=== PATIENT | female | born 1960 | race Caucasian/White ===

== ENCOUNTER → 2016-04-18 | Outpatient (REF) | payer OTHER ==
[~2016-04-18] MED LIST: /AUGM875TA PO; /LOR25TA PO; /TIOT18INH INH; ALBU17IN2 IN; AMBI10TA PO; CHLORTHALIDONE PO; CONC18TA PO; DILA100C PO; GLUC500T PO; OMEP20TA7 PO; OXYC10TA97 PO; PREG100CA PO; REQUIP PO; SIMV20TA2 PO; TOPI100T PO; TOPI50TA PO; XANA0.25 PO; [UNRECOGNIZED DRUG - REMARK]
[2016-04-19 12:54] LABS: BASO # 0.1 K/mm3 (0.0-0.2); EOS # 0.3 K/mm3 (0.0-0.50); EOS % 3.2 % (0.0-3.0); LARGE UNSTAINED CELL # 0.4 K/mm3 (0.0-0.4); LARGE UNSTAINED CELL % 4.4 % (0.0-4.0); LYMPH % 21.3 % (24.0-44.0); MEAN CORPUSCULAR HEMOGLOBIN 29.8 pg (27.0-33.0); MEAN CORPUSCULAR HGB CONC 33.2 g/dl (32.0-36.5); MEAN CORPUSCULAR VOLUME 89.7 fl (80.0-96.0); MONO # 0.4 K/mm3 (0.0-0.8); NEUTROPHILS # 6.1 K/mm3 (1.8-7.7); NEUTROPHILS % 66.1 % (36.0-66.0); PLATELET COUNT, AUTOMATED 333 k/mm3 (150-450); RED CELL DISTRIBUTION WIDTH 13.2 % (11.5-14.5); WHITE BLOOD COUNT 9.2 K/mm3 (4.0-10.0)
[2016-04-19 13:12] LABS: ALBUMIN 3.6 GM/DL (3.2-5.2); ALBUMIN/GLOBULIN RATIO 0.92 (1.00-1.93); ALKALINE PHOSPHATASE 128 U/L (45-117); ALT/SGPT 15 U/L (12-78); ANION GAP 9 MEQ/L (8-16); AST/SGOT 8 U/L (15-37); BILIRUBIN,TOTAL 0.3 MG/DL (0.2-1.0); BLOOD UREA NITROGEN 11 MG/DL (7-18); CALCIUM LEVEL 8.9 MG/DL (8.5-10.1); CARBON DIOXIDE LEVEL 23 MEQ/L (21-32); CHLORIDE LEVEL 107 MEQ/L (98-107); CHOLESTEROL LEVEL 261 MG/DL (<200); CREATININE FOR GFR 0.77 MG/DL (0.55-1.02); GLOMERULAR FILTRATION RATE > 60.0 (>51); GLUCOSE, FASTING 161 MG/DL (70-105); POTASSIUM SERUM 3.8 MEQ/L (3.5-5.1); SODIUM LEVEL 139 MEQ/L (136-145); TOTAL PROTEIN 7.5 GM/DL (6.4-8.2); TRIGLYCERIDES LEVEL 284 MG/DL (<150)
== END ==
LOC: M SFHCCLAY 14:35
PROVIDERS: ATTEND Nurse Practitioner
DX: K64.8 Other hemorrhoids (principal); E11.9 Type 2 diabetes mellitus without complications

== ENCOUNTER → 2016-08-26 | Outpatient (REF) | payer OTHER ==
[2016-08-26 19:23] LABS: ALBUMIN 3.4 GM/DL (3.2-5.2); ALBUMIN/GLOBULIN RATIO 0.83 (1.00-1.93); ALKALINE PHOSPHATASE 113 U/L (45-117); ALT/SGPT 18 U/L (12-78); ANION GAP 10 MEQ/L (8-16); AST/SGOT 6 U/L (15-37); BILIRUBIN,TOTAL 0.2 MG/DL (0.2-1.0); BLOOD UREA NITROGEN 22 MG/DL (7-18); CALCIUM LEVEL 8.9 MG/DL (8.5-10.1); CARBON DIOXIDE LEVEL 23 MEQ/L (21-32); CHLORIDE LEVEL 106 MEQ/L (98-107); CHOLESTEROL LEVEL 236 MG/DL (<200); GLOMERULAR FILTRATION RATE > 60.0 (>51); GLUCOSE, FASTING 264 MG/DL (70-105); POTASSIUM SERUM 4.3 MEQ/L (3.5-5.1); SODIUM LEVEL 139 MEQ/L (136-145); TOTAL PROTEIN 7.5 GM/DL (6.4-8.2); TRIGLYCERIDES LEVEL 226 MG/DL (<150)
== END ==
LOC: M SFHCCLAY 10:19
PROVIDERS: ATTEND Nurse Practitioner
DX: E11.9 Type 2 diabetes mellitus without complications (principal)

== ENCOUNTER → 2016-12-03 | Outpatient (REF) | payer OTHER ==
[2016-12-03 13:13] LABS: ALBUMIN 3.4 GM/DL (3.2-5.2); ALBUMIN/GLOBULIN RATIO 0.92 (1.00-1.93); ALKALINE PHOSPHATASE 106 U/L (45-117); ALT/SGPT 16 U/L (12-78); ANION GAP 10 MEQ/L (8-16); AST/SGOT 3 U/L (15-37); BILIRUBIN,TOTAL 0.4 MG/DL (0.2-1.0); BLOOD UREA NITROGEN 18 MG/DL (7-18); CALCIUM LEVEL 9.3 MG/DL (8.5-10.1); CARBON DIOXIDE LEVEL 25 MEQ/L (21-32); CHLORIDE LEVEL 103 MEQ/L (98-107); CREATININE FOR GFR 0.86 MG/DL (0.55-1.02); GLOMERULAR FILTRATION RATE > 60.0 (>51); GLUCOSE, FASTING 246 MG/DL (70-105); POTASSIUM SERUM 4.4 MEQ/L (3.5-5.1); SODIUM LEVEL 138 MEQ/L (136-145); TOTAL PROTEIN 7.1 GM/DL (6.4-8.2)
== END ==
LOC: M SFHCCLAY 08:57
PROVIDERS: ATTEND Nurse Practitioner
DX: E11.9 Type 2 diabetes mellitus without complications (principal)

== ENCOUNTER → 2016-12-20 | Outpatient (REF) | payer OTHER | LOC: M SFHCCLAY 16:32 | PROVIDERS: ATTEND Family Medicine | DX: K52.9 Noninfective gastroenteritis and colitis, unspecified (principal) ==

== ENCOUNTER → 2017-01-14 | Outpatient (CLI) | payer BC, OTHER, MEDICAID ==
--- NOTE | 2017-01-14 22:33 | REP ---
Whole body PET CT scan for restaging of breast carcinoma: There are no prior PET CT scans. Comparison study is the CT of the chest dated 04/10/2015. Whole body PET CT scan is performed from skull base to the upper thighs. Neck and supraclavicular areas: There are no hypermetabolic foci. There is artifactual uptake in the the tonsillar tissues. Chest: There are no hypermetabolic foci. There is non hypermetabolic uptake in the left breast nipple. There is a right mastectomy. There is non hypermetabolic uptake in the anterior right chest wall. Abdomen, pelvis and upper thighs: There are no hypermetabolic foci. There is a small right adrenal nodule at the confluence of the medial and lateral right adrenal leaves that demonstrate non hypermetabolic uptake with the standard uptake value i measuring 1.7. Impression: There are no hypermetabolic foci. The patients known small right adrenal nodule demonstrates non hypermetabolic uptake. The studies performed with 10 mCi of F 18 FDG. Signed by Brandan Parada MD 01/14/2017 10:25 P
== END ==
LOC: M PLARAD 11:43
PROVIDERS: ATTEND Internal Medicine Medical Oncology
DX: C50.919 Malignant neoplasm of unspecified site of unspecified female breast (principal)
CPT/HCPCS: 78815; A9552

== ENCOUNTER 2017-03-14 12:20 | Day surgery (SDC) | payer BC, OTHER, MEDICAID ==
[2017-03-14] MEDS: NS 1,000 ML IV (12:45)
[2017-03-14] MEDS ORDERED: PROPOFOL 500 MG/50 ML VIAL As Ordered (13:40)
[2017-03-14] MEDS ORDERED: LIDOCAINE 2% INJ 100 MG/5 ML SDV (FOR ANES.) As Ordered (13:40)
== END 2017-03-14 15:25 | disposition home or self-care (01) ==
LOC: M OPP 12:20
DX: K92.1 Melena (principal); D12.0 Benign neoplasm of cecum; D12.4 Benign neoplasm of descending colon; D12.7 Benign neoplasm of rectosigmoid junction; K57.30 Diverticulosis of large intestine without perforation or abscess without bleeding; K64.8 Other hemorrhoids; R13.10 Dysphagia, unspecified; K29.70 Gastritis, unspecified, without bleeding; I10 Essential (primary) hypertension; E11.9 Type 2 diabetes mellitus without complications; R12 Heartburn; K21.9 Gastro-esophageal reflux disease without esophagitis; R06.02 Shortness of breath; M19.90 Unspecified osteoarthritis, unspecified site; M54.9 Dorsalgia, unspecified; F41.9 Anxiety disorder, unspecified; F32.9 Major depressive disorder, single episode, unspecified; F90.9 Attention-deficit hyperactivity disorder, unspecified type; J44.9 Chronic obstructive pulmonary disease, unspecified; G47.8 Other sleep disorders; Z85.3 Personal history of malignant neoplasm of breast; Z92.21 Personal history of antineoplastic chemotherapy; Z92.3 Personal history of irradiation; F17.210 Nicotine dependence, cigarettes, uncomplicated; Z90.11 Acquired absence of right breast and nipple; Z88.8 Allergy status to other drugs, medicaments and biological substances; Z79.899 Other long term (current) drug therapy
CPT/HCPCS: 45380

== ENCOUNTER → 2017-05-01 | Outpatient (REF) | payer OTHER, MEDICAID ==
[2017-05-01 17:26] LABS: ALBUMIN 3.6 GM/DL (3.2-5.2); ALBUMIN/GLOBULIN RATIO 0.88 (1.00-1.93); ALKALINE PHOSPHATASE 117 U/L (45-117); ALT/SGPT 19 U/L (12-78); ANION GAP 9 MEQ/L (8-16); AST/SGOT 7 U/L (7-37); BILIRUBIN,TOTAL 0.2 MG/DL (0.2-1.0); BLOOD UREA NITROGEN 17 MG/DL (7-18); CALCIUM LEVEL 9.3 MG/DL (8.5-10.1); CARBON DIOXIDE LEVEL 25 MEQ/L (21-32); CHLORIDE LEVEL 106 MEQ/L (98-107); CHOLESTEROL LEVEL 293 MG/DL (<200); CHOLESTEROL RISK RATIO 5.327 (<5); CREATININE FOR GFR 0.81 MG/DL (0.55-1.30); GLOMERULAR FILTRATION RATE > 60.0 (>51); GLUCOSE, FASTING 247 MG/DL (70-100); HDL CHOLESTEROL 55 MG/DL (>40); LDL CHOLESTEROL 192.6 MG/DL (<100); NON-HDL-C 238 MG/DL; POTASSIUM SERUM 4.2 MEQ/L (3.5-5.1); SODIUM LEVEL 140 MEQ/L (136-145); TOTAL PROTEIN 7.7 GM/DL (6.4-8.2); TRIGLYCERIDES LEVEL 227 MG/DL (<150)
[2017-05-01 17:35] LABS: CREATININE, URINE 80.9 MG/DL; MALB URINE SIEMENS 83.8 MG/L; MAU/CREAT RATIO 103.5 MCG/MG (0.0-30.0)
[2017-05-01 18:36] LABS: ESTIMATED AVERAGE GLUCOSE 249 MG/DL (60-110); HEMOGLOBIN A1c 10.3 %
== END ==
LOC: M SFHCCLAY 09:42
DX: E11.9 Type 2 diabetes mellitus without complications (principal)
CPT/HCPCS: 80053

== ENCOUNTER → 2017-05-05 | Outpatient (CLI) | payer BC, OTHER, MEDICAID | LOC: M RAD 10:19 | DX: N64.52 Nipple discharge (principal) | CPT/HCPCS: 77065 ==

== ENCOUNTER → 2017-05-29 | Outpatient (CLI) | payer BC, OTHER, MEDICAID ==
[~2017-05-29] MED LIST changes: -/AUGM875TA PO; -/LOR25TA PO; -/TIOT18INH INH; -ALBU17IN2 IN; -AMBI10TA PO; -CHLORTHALIDONE PO; -CONC18TA PO; -DILA100C PO; -GLUC500T PO; -OMEP20TA7 PO; -OXYC10TA97 PO; -PREG100CA PO; +PROHANCE 279.3MG/ML 15ML VIAL (A9576) As Ordered; +PROHANCE 279.3MG/ML 5ML VIAL (A9576) As Ordered; -REQUIP PO; -SIMV20TA2 PO; -TOPI100T PO; -TOPI50TA PO; -XANA0.25 PO; -[UNRECOGNIZED DRUG - REMARK]
== END ==
LOC: M RAD 14:53
DX: Z12.31 Encounter for screening mammogram for malignant neoplasm of breast (principal)

== ENCOUNTER → 2017-12-23 | Outpatient (CLI) | payer BC | LOC: M WHC 14:33 | DX: Z85.3 Personal history of malignant neoplasm of breast (principal); Z79.811 Long term (current) use of aromatase inhibitors; M81.0 Age-related osteoporosis without current pathological fracture; M85.851 Other specified disorders of bone density and structure, right thigh; M85.852 Other specified disorders of bone density and structure, left thigh | CPT/HCPCS: 77080 ==

== ENCOUNTER → 2017-12-29 | Outpatient (REF) | payer BC ==
[2017-12-29 18:37] LABS: CREATININE FOR GFR 0.78 MG/DL (0.55-1.30); GLOMERULAR FILTRATION RATE > 60.0 (>51)
[2017-12-29 18:37] LABS: BLOOD UREA NITROGEN 12 MG/DL (7-18)
== END ==
LOC: M LABDRAWC 17:33
DX: Z01.812 Encounter for preprocedural laboratory examination (principal)

== ENCOUNTER → 2017-12-30 | Outpatient (CLI) | payer BC, OTHER, MEDICAID ==
[~2017-12-30] MED LIST changes: +ISOVUE-370 76% 100ML VIAL (Q9967) As Ordered; -PROHANCE 279.3MG/ML 15ML VIAL (A9576) As Ordered; -PROHANCE 279.3MG/ML 5ML VIAL (A9576) As Ordered
== END ==
LOC: M RAD 12:33
DX: M89.8X9 Other specified disorders of bone, unspecified site (principal); Z87.891 Personal history of nicotine dependence; Z85.3 Personal history of malignant neoplasm of breast
CPT/HCPCS: Q9967

== ENCOUNTER → 2018-01-09 | Outpatient (CLI) | payer BC, OTHER ==
[~2018-01-09] MED LIST changes: +GASTROGRAFIN SOLUTION 30ML (Q9963) As Ordered
== END ==
LOC: M RAD 15:41
DX: C50.919 Malignant neoplasm of unspecified site of unspecified female breast (principal); E27.9 Disorder of adrenal gland, unspecified; M51.06 Intervertebral disc disorders with myelopathy, lumbar region; R10.9 Unspecified abdominal pain; R14.0 Abdominal distension (gaseous)
CPT/HCPCS: Q9963

== ENCOUNTER → 2018-06-10 | Outpatient (CLI) | payer BC, OTHER ==
[~2018-06-10] MED LIST changes: +/AUGM875TA PO; +/LOR25TA PO; +ALBU17IN2 IN; +AMBI10TA PO; +ANAS1TAB2 PO; +BUPR50TA PO; +BYDU1INJ SC; +CHLORTHALIDONE PO; +CONC18TA PO; +CONC54TA4 PO; +DILA100C PO; -GASTROGRAFIN SOLUTION 30ML (Q9963) As Ordered; +GLUC500T PO; -ISOVUE-370 76% 100ML VIAL (Q9967) As Ordered; +LEVAINH INH; +OMEP20TA7 PO; +OMEP40CA2 PO; +OXYC10TA97 PO; +PREG100CA PO; +REQUIP PO; +ROPI1TAB PO; +SIMV20TA2 PO; +SPIR1CAP INH; +TOPI100T PO; +TOPI50TA PO; +TOUJ1.2I; +VENL37TA PO; +XANA0.25 PO; +ZOLP10TA2 PO; +[UNRECOGNIZED DRUG - REMARK]
--- NOTE | 2018-06-10 12:50 | REP ---
MAMMOGRAM LEFT BREAST WITH 3D TOMOSYNTHESIS: Patient is status post right mastectomy. COMPARISON: 10/05/2017 There is moderate MLO and CC views of the left breast are performed with 3D tomosynthesis. Moderate scattered fibroglandular tissue appears unchanged. There is no new mass or clustered microcalcifications. Medical port is again seen in the left axilla. Findings are stable. IMPRESSION: BIRADS 1: BI-RADS/ACR category 1 mammogram. Negative Mammogram. ACR 1 negative mammogram left breast. Patient is status post right mastectomy. Suggest followup mammogram in 1 year. This mammogram was interpreted with the aid of an FDA-approved computer-aided detection system. A. Negative x-ray reports should not delay biopsy if a dominant or clinically suspicious mass is present. B. Four to eight percent of cancers are not identified by x-ray. C. Adenosis and dense breasts may obscure an underlying neoplasm. The patient states she/he had a clinical breast exam in May 2018. The patient letter being requested is M1. Electronically Signed by Brandan Buckley MD 06/12/2018 11:51 A
== END ==
LOC: M RAD 10:15
PROVIDERS: ATTEND Internal Medicine Hematology & Oncology
DX: Z12.31 Encounter for screening mammogram for malignant neoplasm of breast (principal); Z90.11 Acquired absence of right breast and nipple

== ENCOUNTER → 2018-06-16 | Outpatient (CLI) | payer BC, OTHER ==
[~2018-06-16] MED LIST changes: +BUPIVACAINE HCL 0.5% 10 ML VIAL As Ordered ONE; +ISOVUE-300 61% 100ML VIAL (Q9967) As Ordered ONE; +LIDOCAINE 2% MDV 20 ML VIAL As Ordered ONE; +MIDAZOLAM INJ 2 MG/2 ML VIAL (J2250) As Ordered ONE; +fentaNYL 100 MCG/2 ML INJECTION (J3010) As Ordered ONE
--- NOTE | 2018-07-17 08:30 | REPIR ---
DATE OF PROCEDURE: 06/16/2018 ATTENDING SURGEON: Dr. Bryan Nunez ASSISTANTS: Veronika Marina and Silke Burrows PREOPERATIVE DIAGNOSES: Breast cancer, left internal jugular vein tunneled central venous catheter with subcutaneous port, continued tobacco use. POSTOPERATIVE DIAGNOSES: Breast cancer, left internal jugular vein tunneled central venous catheter with subcutaneous port, continued tobacco use. PROCEDURE: Left internal jugular vein tunneled central venous catheter with subcutaneous port removal, left internal jugular vein angioplasty with 3 x 100 balloon, left innominate vein angioplasty of 3 x 100 balloon, left superior vena cava angioplasty with 3 x 100 balloon. INDICATION: The patient is a 57-year-old female who has breast cancer who underwent placement of a tunneled central venous catheter with subcutaneous port that now requires removal. The patient will undergo removal. ANESTHESIA: Local sedation with 2 mg Versed 100 mcg of Fentanyl and 20 mL of local. FLUORO TIME: 0.2 minutes. CONTRAST: None. COMPLICATIONS: None. DRAINS: None. SPECIMENS: None. IMPLANTS: None. SEDATION TIME: 12:12 p.m. to 12:34 p.m. for a total of 22 minutes. INDICATIONS FOR THE PROCEDURE: The patient was taken to the angiography suite, placed supine on the angiography room table and then prepped and draped in a standard surgical fashion. Incision was made over the tunneled central venous catheter with subcutaneous port. The port was removed but the catheter was unable to be removed. A wire was advanced through the catheter which was then angioplastied with the portion of the catheter in the innominate vein, internal jugular vein and superior vena cava being angioplasty with a 3 x 100 balloon after which the catheter was easily removed. The left internal jugular vein, innominate vein and superior vena cava were then angioplastied with a 3 x 100 balloon for resolution of the fibrin sheath. The incision was then closed using #3-0 Monocryl. Dressings were applied. The patient tolerated the procedure well.
== END | disposition home or self-care (01) ==
LOC: M IRPRO 10:55
PROVIDERS: ATTEND Internal Medicine Hematology & Oncology
DX: T82.828A Fibrosis due to vascular prosthetic devices, implants and grafts, initial encounter (principal); C50.919 Malignant neoplasm of unspecified site of unspecified female breast; Z72.0 Tobacco use
CPT/HCPCS: 36590; 36595; 75901; C1725; J2250; J3010; Q9967

== ENCOUNTER → 2018-08-04 | Outpatient (CLI) | payer BC, OTHER ==
[~2018-08-04] MED LIST changes: -BUPIVACAINE HCL 0.5% 10 ML VIAL As Ordered ONE; -ISOVUE-300 61% 100ML VIAL (Q9967) As Ordered ONE; -LIDOCAINE 2% MDV 20 ML VIAL As Ordered ONE; -MIDAZOLAM INJ 2 MG/2 ML VIAL (J2250) As Ordered ONE; -fentaNYL 100 MCG/2 ML INJECTION (J3010) As Ordered ONE
--- NOTE | 2018-08-04 16:10 | REP ---
Clinical: Pain. Technique: Internal rotation, external rotation, and Y view of the left shoulder. Findings: Mild/early moderate arthritic changes include cortical irregularity and spurring at the acromioclavicular joint as well as blunting involving the inferior aspect of the calcified glenoid rim. Subacromial space is within normal limits. No periarticular calcifications or loose bodies noted. Impression: Early moderate arthritic degenerative changes.
--- NOTE | 2018-08-04 16:12 | REP ---
Clinical: Neck pain. Technique: AP, lateral, flexion/extension, swimmer's, open-mouth, bilateral oblique views of the cervical spine. Findings: Alignment and lordosis maintained. No acute fracture / compression injury or subluxation. Moderate degenerative disc osteophyte complex at C5-6, C6-7, and C7-T1 includes endplate sclerosis, disc space narrowing, and marginal osteophytosis. Open mouth view demonstrates normal C1-C2 articulation and odontoid process. Oblique views demonstrate patent neural foramen. Impression: Moderate multilevel degenerative spondylosis.
== END ==
LOC: M CLY 15:14
PROVIDERS: ATTEND Nurse Practitioner Family
DX: S16.1XXA Strain of muscle, fascia and tendon at neck level, initial encounter (principal); Y92.89 Other specified places as the place of occurrence of the external cause; Y93.89 Activity, other specified; X58.XXXA Exposure to other specified factors, initial encounter; Y99.8 Other external cause status; M47.812 Spondylosis without myelopathy or radiculopathy, cervical region; M13.812 Other specified arthritis, left shoulder

== ENCOUNTER → 2019-10-08 | Outpatient (REF) | payer BC, OTHER ==
[~2019-10-08] MED LIST changes: +ALPR0.5T3 PO; +BUPR-69 PO; -BUPR50TA PO; +HYDR-3713 PO; +IBRA100C PO; +IBRA125C PO; +LYRI150C PO; +MORP15TA2 PO; -OMEP40CA2 PO; +OMEP40CA97 PO; +ONDA-83 PO; +ONDA8TAB10 PO; +PROC10TA4 PO; -ROPI1TAB PO; +ROPI1TAB3 PO; -TOUJ1.2I; +TOUJ1.2I SC; +TOUJ1.2I SQ; +ZOFR8TAB24 PO
[2019-10-08 16:14] LABS: BASO # 0.1 10^3/uL (0.0-0.2); BASO % 1.1 % (0.0-1.0); EOS # 0.3 10^3/uL (0.0-0.5); EOS % 3.5 % (0.0-3.0); HEMATOCRIT 39.7 % (36.0-47.0); HEMOGLOBIN 12.5 g/dl (12.0-15.5); LYMPH # 2.8 10^3/uL (1.5-5.0); LYMPH % 28.8 % (24.0-44.0); MEAN CORPUSCULAR HEMOGLOBIN 29.2 pg (27.0-33.0); MEAN CORPUSCULAR HGB CONC 31.5 g/dl (32.0-36.5); MEAN CORPUSCULAR VOLUME 92.8 fl (80.0-96.0); MONO # 0.5 10^3/uL (0.0-0.8); MONO % 4.7 % (0.0-5.0); NEUTROPHILS # 5.9 10^3/uL (1.5-8.5); NEUTROPHILS % 61.4 % (36.0-66.0); PLATELET COUNT, AUTOMATED 385 10^3/uL (150-450); RED BLOOD COUNT 4.28 10^6/uL (4.00-5.40); WHITE BLOOD COUNT 9.6 10^3/uL (4.0-10.0)
[2019-10-08 16:15] LABS: ALBUMIN 3.3 GM/DL (3.2-5.2); ALT/SGPT 16 U/L (12-78); BILIRUBIN,TOTAL 0.3 MG/DL (0.2-1.0); BLOOD UREA NITROGEN 15 MG/DL (7-18); CALCIUM LEVEL 9.1 MG/DL (8.5-10.1); CARBON DIOXIDE LEVEL 28 MEQ/L (21-32); CHLORIDE LEVEL 109 MEQ/L (98-107); CREATININE FOR GFR 0.78 MG/DL (0.55-1.30); GLOMERULAR FILTRATION RATE > 60.0 (>51); GLUCOSE, FASTING 138 MG/DL (70-100); POTASSIUM SERUM 3.7 MEQ/L (3.5-5.1); SODIUM LEVEL 143 MEQ/L (136-145); TOTAL PROTEIN 7.1 GM/DL (6.4-8.2)
[2019-10-08 16:59] LABS: CA15-3 ANTIGEN 35.9 U/ML (<32.4)
[2019-10-08 17:07] LABS: INR 0.96
[2019-10-08 17:08] LABS: PARTIAL THROMBOPLASTIN TIME 28.3 SECONDS (25.0-38.4)
== END ==
LOC: M LABDRAWC 11:45
PROVIDERS: ATTEND Internal Medicine Hematology & Oncology
DX: Z01.89 Encounter for other specified special examinations (principal)

== ENCOUNTER → 2019-10-19 | Outpatient (CLI) | payer BC, OTHER ==
--- NOTE | 2019-11-09 11:09 | REP ---
CT PET: REASON FOR EXAMINATION: Breast carcinoma. COMPARISON: 01/14/17 which showed no abnormal activity. TECHNIQUE: After the intravenous administration of 8.94 mCi of FTG 18, triplane whole body PET CT was performed from the skull base to the mid-thigh. FINDINGS: The CT component of the examination shows a small right pleural effusion. Scattered areas of hypermetabolism is seen throughout the musculature secondarily to improper resting post tracer ingestion. This causes exam limitations. There is no abnormal hypermetabolic activity seen in the neck, chest, abdomen or pelvis. There is multifocal abnormal hypermetabolism seen in multiple sites throughout the axial and appendicular skeleton. Of note, there is hypermetabolic activity seen in T11 with an SUV value of 11. There is evidence of an old T12 compression fracture, which is however, somewhat hypermetabolic with an SUV value of 4.6. There is a hypermetabolic focus seen in L3 with an SUV value of 9.7 and in L5, with an SUV value of 7.7. Hypermetabolic activity is also seen in the right pedicle of L5 extending into the spinous process as well. There is hypermetabolic activity seen in the left anterior ileum and within the left posterior acetabulum of 8.3 and 7.7 SUV value respectively. In the left femoral neck, there is a hypermetabolic focus with an SUV value of 8.3. In the proximal left femoral diaphysis, there is intramedullary hypermetabolic activity with an SUV value of 8.2. In the posterior right acetabulum, there is hypermetabolic activity with an SUV value of 5.3. There is a hypermetabolic focus seen in S1 on the right with an SUV value of 6.3. There is a hypermetabolic focus seen in the right anterior ileum with an SUV value of 8.6. Multiple hypermetabolic foci are seen in multiple ribs. IMPRESSION: 1. Muscular uptake causes examination limitations as described above. 2. There is a small right pleural effusion. I have no contrast-enhanced chest CT to review. Contrast-enhanced CT examination of the chest, abdomen and pelvis is recommended. 3. Evidence of skeletal metastatic disease as described above. MTDD
== END ==
LOC: M PLARAD 15:18
PROVIDERS: ATTEND Specialist
DX: C50.811 Malignant neoplasm of overlapping sites of right female breast (principal); J90 Pleural effusion, not elsewhere classified
CPT/HCPCS: 78815; A9552

== ENCOUNTER → 2019-10-20 | Outpatient (CLI) | payer BC, OTHER ==
[~2019-10-20] MED LIST changes: +LIDOCAINE 1% MDV 20ML VIAL As Ordered ONE
[2019-10-20 10:50] VITALS: BP 180/100
--- NOTE | 2019-11-09 12:50 | REP ---
CT GUIDED L5 VERTEBRAL BODY BIOPSY: The procedure was performed under the direct supervision of Dr. Buckley. The patient has a history of a destructive lytic process involving the L5 vertebrae seen on a previous PET scan from [facility] performed on 10/01/19. The risks and benefits of the procedure were explained to the patient and informed consent was obtained. The L5 vertebral body was localized using CT guidance. The skin was prepped and draped in a sterile fashion. 1% Lidocaine was used as a local anesthetic. Using CT guidance, a 17/18 gauge coaxial needle biopsy system was inserted and advanced into the lesion. Five core biopsy samples were obtained and sent to the lab. The patient tolerated the procedure well and there were no immediate complications. After the appropriate amount of monitored convalescent, the patient was discharged from the department. TIMMY
== END ==
LOC: M IRPRO 08:06
PROVIDERS: ATTEND Specialist
DX: C79.51 Secondary malignant neoplasm of bone (principal); Z85.3 Personal history of malignant neoplasm of breast

== ENCOUNTER → 2019-10-22 | Outpatient (CLI) | payer BC, OTHER ==
[~2019-10-22] MED LIST changes: -LIDOCAINE 1% MDV 20ML VIAL As Ordered ONE
--- NOTE | 2019-10-22 16:19 | RADONC.CN ---
Radiation Oncology Hx/Consult Radiation Oncology Consult Date of Service: Oct 22, 2019 Pt Identifier Irina Harris is a 58 year old female with newly diagnosed metastatic breast cancer to bone. She is seen following confirmatory biopsy of L5 on 10/20/19 for consideration of palliative RT. Diagnosis/Treatment History Oncologic History She was diagnosed with stage III right breast cancer in 2014. She underwent right mastectomy and SLNB in May 2014 revealing [id number] ER/NV+ HER2- Grade 2. She received adjuvant AC+T chemo followed by PMRT to 50.4 Gy in 28 fractions plus a 9 Gy in 5 fractions scar boost completed on 12/16/14. She then started Arimidex in February 2015. She was LIBAN through the first part of 2019. In September 2019 she developed low back pain which prompted her to present to the ED at [facility]. CT there demonstrated concerning lesions in the T and L spine. She had a PET-CT on 10/19/19 which revealed numerous hypermetabolic foci in the axial skeleton such as left anterior 1st rib, left posterior 9th rib, right lateral 8th rib, T11-12 and L3-S1 and the BL pelvic bones, with the most extensive lesion at L5. There are no convincing visceral foci of disease. She underwent L5 biopsy on 10/20/19 with pathology showing breast cancer, receptors/markers pending. Interval History She reports that she has a history of fibromyalgia for which she takes lyrica, she has increased her lyrica dose in response to her current pain. She is also taking aleve for her current pain. She does not like to take narcotic pain m edication. She has 2 foci of pain, worst is the low back which is constant aching, worse with weight bearing and movement, the pain does not radiate beyond the low back. Her pain limits her mobility. She also has pain in the right lateral chest in the ribs, this pain is constant, radiates from the lateral chest anteriorly and posteriorly in a linear band. She is having trouble slee ping due to pain as well. She denies fevers chills weight loss. She has constant fatigue. Past Medical History: Anxiety/depression Fibromyalgia COPD DM II HTN Arthritis Seizures Past Surgical History: BL knee arthroscopy Hysterectomy Right mastectomy without reconstruction Family History: No pertinent family history Social History: Current smoker 1/2 ppd for 40 years No alcohol use Allergies / Meds Allergies: Coded Allergies: aspirin (Verified Adverse Reaction, Intermediate, nausea, 06/03/18) metformin (Verified Adverse Reaction, Intermediate, GI distress, 06/03/18) Home Meds Reported Medications Alprazolam (Alprazolam) 0.5 Mg Tablet, 1 TAB PO QIDP PRN for ANXIETY/AGITATION 10/22/19 Pregabalin (Lyrica) 150 Mg Capsule, 1 CAP PO BID MDD 2 Capsule(s) for 30 Days, #60 CAP 10/20/19 Pregabalin (Lyrica) 150 Mg Capsule, 2 CAP PO QAM MDD 2 Capsule(s) for 30 Days, #60 CAP 10/20/19 Insulin Glargine,Hum.rec.anlog (Toujeo Solostar) 300 Unit/1 Ml Insuln.pen, 30 UNIT SC QHS 10/20/19 Ondansetron HCl (Ondansetron HCl) 4 Mg Tablet, 4 MG PO BID for NAUSEA, #30 10/06/19 Insulin Glargine,Hum.rec.anlog (Toujeo Solostar) 300 Unit/1 Ml Insuln.pen, 36 MG SQ QAM 06/03/18 Tiotropium [place] (Spiriva) 18 Mcg Cap, 18 MCG INH DAILYPRN PRN for WHEEZING for 30 Days, CAP 01/06/18 Bupropion HCl (Bupropion HCl) 50 Mg Halftab, 100 MG PO DAILYPRN PRN for ANXIETY, TAB 03/06/17 Levalbuterol Hydrochloride (Xopenex Hfa) 45 Mcg/Act Aer, 2 PUFF INH Q4HP PRN for WHEEZING, INHALER 03/06/17 Omeprazole (Omeprazole) 40 Mg Cap, 40 MG PO BID, CAP 03/06/17 Methylphenidate HCl (Concerta) 54 Mg Tab, 54 MG PO DAILY 03/06/17 Ropinirole HCl (Ropinirole HCl) 1 Mg Tab, 1 MG PO TID, TAB 03/06/17 Discontinued Reported Medications Pregabalin (Lyrica) 100 Mg Cap, 100 MG PO TID, CAP 03/06/17 Discontinued Scripts Hydrocodone/Acetaminophen (Hydrocodone-Acetamin 5-325 mg) 1 Each Tablet, 1 TAB PO QID PRN for PAIN MDD 4, #60 TAB MDD 4 Prov:ANIYAH ANDREWS MD 10/06/19 Review of Systems Constitutional: Reports: Fatigue; Denies: Chills, Fever, Night Sweats Eyes: Denies: Pain HEENT: Denies: Head Aches, Dysphagia, Sore Throat Skin: Denies: Rash, Lesions, Bruising Pulmonary: Denies: Dyspnea, Cough Cardiovascular: Reports: Chest Pain; Denies: Palpitations, Edema Gastrointestinal: Denies: Nausea, Vomiting, Abdominal Pain, Diarrhea Genitourinary: Denies: Dysuria, Frequency, Incontinence Hematologic: Denies: Bruising, Petecchia, Enlarged Lymph Nodes Endocrine: Denies: Polydipsia, Polyphagia, Polyuria, Heat Intolerance, Cold Intolerance, Other Endocrine Sx Musculoskeletal: Reports: Shoulder pain, Back pain, Midthoracic pain; Denies: Neck pain, Leg pain, Joint pain Neurological: Reports: Seizures; Denies: Weakness, Numbness, Confusion Psych: Reports: Anxiety, Depression Vital Signs Ht 63" Wt 212lb T 98.3 P 93 RR 18 BP 155/110 O2 98% General Exam: Positive: Alert, Cooperative, Mild Distress Eye Exam: Positive: PERRLA, EOMI ENT EXAM: Positive: Atraumatic, Pharynx Normal Neck Exam: Positive: Supple; Negative: Lymphadenopathy Chest Exam: Positive: Clear to auscultation, Normal air movement Heart Exam: Positive: Rate Normal, Regular Rhythm Abdomen Exam: Positive: Soft; Negative: Tenderness Extremity Exam: Negative: Edema Skin Exam: Positive: Nl turgor and temperature Neuro Exam: Positive: Normal Gait, Normal Speech, Cranial Nerves 3-12 NL Psych Exam: Positive: Mental status NL Other Physical Findings Musculoskeletal: There is tenderness in a band along the right lateral chest at approximately the level of the 7th-9th rib. There is tenderness in over the spinous processes and paraspinal musculature in the low back from the CVA to the sacrum. There is point tenderness over the anterior iliac crests bilaterally. Remainder of joints and bony prominences without tenderness to deep palpation. Diagnostic and Laboratory Diagnostic Review Radiologic images, relevant labs and pathology reports were personally reviewed and discussed with Ms. Harris. Assessment and Plan Impression Ms. Harris is a 58 year old female with newly diagnosed metastatic breast cancer to bone. She is seen following confirmatory biopsy of L5 on 10/20/19 for consideration of palliative RT. Stage Stage IV Performance Status ECOG 2 Plan We had an extensive discussion with Ms. Harris regarding the diagnosis at hand and available therapeutic options. I disclosed the diagnosis of stage IV breast cancer to her as the pathology was resulted today. She was tearful but appreciative of the diagnosis. I explained that the prognosis for women with MBC has improved markedly with the denominational of novel systemic therapies and hence there is reason to be hopeful. Moreover she does not appear to harbor any visceral metastatic disease at this time which is favorable prognostically. She will see Dr. Andrews on Friday and hopefully her biopsy markers will be back so that decisions can be made on appropriate systemic therapy. I note that she has not had brain imaging at this time, and I will defer to Dr. Andrews on the utility of pursuing it now. With respect to her pain which is her primary concern today. It is located in the lower back and is diffuse. She harbors a number of vertebral metastases from T11 downward. Thus I would favor treating a large field here 30 Gy in 10 fr actions with a 3 field technique to spare the bowel and kidneys. She also has pain in the right lateral chest which best corresponds to a right lateral 8th rib lesion seen on the PET-CT. This can be treated concurrently to the same dose. As she is averse to narcotics, and only taking lyrica (for fibromyalgia) and aleve, I will give her a trial of decadron 2 mg daily to see if this helps her pain. If she does not like the decadron then she could continue on aleve or we could discuss oxycodone or morphine again with her. She may ultimately benefit from palliative care referral, however due to the emotional shock of hearing her diagnosis, I did not broach this with her today. We can revisit referral to palliative in the future. We discussed the logistics of receiving radiation therapy in detail including the need for a 1-time planning session which I will attempt to expedite to next week (pending insurance approval). Treatment planning could be expedited as well. Side effects likely are fatigue and diarrhea, she is willing to accept these for pain relief. After discussing the risks, benefits and alternatives to radiation therapy, Ms. Harris was amenable to pursuing radiotherapy. All questions were answered to the patient's satisfaction. We instructed the patient that if there were any questions,concerns or changes in clinical status in the interim to contact us. Recommendations Palliative RT [id number] & right lateral 8th rib lesion for pain control 30 Gy in 10 fractions Simulation week of 10/25/19 Decadron 2 mg daily can revisit if efficacious at simulation Patient to see Dr. Andrews 10/26/19 defer additional imaging to him SHAHIDA FULLER MD Oct 22, 2019 16:19
== END ==
LOC: M ONCR 14:06
PROVIDERS: ATTEND General Practice
DX: C50.911 Malignant neoplasm of unspecified site of right female breast (principal); C79.51 Secondary malignant neoplasm of bone; M79.7 Fibromyalgia

== ENCOUNTER → 2019-11-03 | Outpatient (CLI) | payer BC, OTHER ==
[~2019-11-03] MED LIST changes: +ISOVUE-370 76% 100ML VIAL As Ordered ONE
--- NOTE | 2019-11-11 11:07 | REP ---
RIGHT RIB SERIES: 5-VIEWS HISTORY: Metastatic breast carcinoma. FINDINGS: There are nondisplaced fractures of the lateral eighth and ninth ribs. No definite bony destructive lesion is seen. PA chest radiograph shows no evidence of infiltrate or pleural effusion. Mediastinum is not widened. Mild wedging is seen at two adjacent lower thoracic levels. IMPRESSION: Right eighth and ninth rib fractures. No definite bony destructive lesion. MTDD
--- NOTE | 2019-11-11 11:08 | REP ---
CT CHEST WITH INTRAVENOUS (IV) CONTRAST HISTORY: Breast carcinoma. Status post right chest and breast radiation. Painful lesion in the right eighth rib, question metastasis versus fracture. COMPARISON: Made with PET CT study from 10/19/2019. Chest CT from 12/30/2017. CT CONTRAST DOSE: 100 mL of intravenous Isovue-[address] FINDINGS: The patient is status post right mastectomy. Post radiation fibrotic changes are seen in the subpleural region of the right upper lobe and right lateral chest wall region. There are linearly opposed nondisplaced fractures of the right anterolateral eighth and anterolateral ninth ribs. The eighth rib fracture is felt to correspond with the area of hypermetabolic uptake on recent PET CT. There is no evidence of pathologic fracture here and no lytic change. There are metastatic lesions elsewhere in the visualized skeleton most prominently affecting the T11 vertebral body. In comparison with the thoracic spine CT study from [facility] dated 10/01/2019, there has been a slight loss of vertebral body height and partial collapse of T11 associated with a lytic metastatic lesion. There is some reactive sclerosis surrounding the lesion. Old wedging is seen in T12. There is also evidence of a lytic lesion in T12 vertebral body, which is a little more prominent than on the 10/01/2019 study. There is a slightly expansile metastasis in the posterior aspect of the left ninth rib consistent with a small metastasis. No pulmonary mass lesion is visible. No mediastinal or hilar adenopathy is seen. No pleural or pericardial effusion is seen. No adrenal mass is observed. No focal liver lesion is seen. IMPRESSION: * Findings consistent with traumatic fractures of the right lateral eighth and posterolateral ninth ribs. No evidence to suggest pathologic fracture at these two sites. * There is evidence of lytic skeletal metastatic disease involving T11 and T12 with some collapse of these two levels and the left posterior ninth rib. * There is a stable 5 mm pulmonary nodule in the left lower lobe unchanged from 12/30/2017. No new pulmonary nodule is seen. Post radiation changes are noted on the right anterolaterally. MTDD
== END ==
LOC: M RAD 14:06
PROVIDERS: ATTEND Radiology Radiation Oncology
DX: S22.41XA Multiple fractures of ribs, right side, initial encounter for closed fracture (principal); C79.51 Secondary malignant neoplasm of bone; Z92.3 Personal history of irradiation; Z90.11 Acquired absence of right breast and nipple; R91.8 Other nonspecific abnormal finding of lung field; X58.XXXA Exposure to other specified factors, initial encounter; Y92.9 Unspecified place or not applicable
CPT/HCPCS: 71101; 71260; Q9967

== ENCOUNTER → 2019-11-05 | Outpatient (CLI) | payer BC, OTHER ==
[~2019-11-05] MED LIST changes: -ISOVUE-370 76% 100ML VIAL As Ordered ONE
--- NOTE | 2019-11-11 11:09 | REP ---
LEFT RIB SERIES: 4-VIEWS HISTORY: Secondary malignant neoplasm of bone. Acute onset left mid axillary line rib pain with motion. [place] a pop and instant pain. COMPARISON: Made with radiographs from 11/03/[address] study from 11/03/2019. FINDINGS: There is a nondisplaced transverse fracture through the lateral aspect of the left seventh rib with associated subpleural edema new from the rib views done two days prior. No bony destructive lesion is seen here radiographically or on the chest CT study from 11/03/2019. The findings were reviewed at the workstation with the attending radiation oncologist, Dr. Raúl Sheppard. [facility] MEDICAL CENTERAndreina
== END ==
LOC: M RAD 14:47
PROVIDERS: ATTEND Radiology Radiation Oncology
DX: C79.51 Secondary malignant neoplasm of bone (principal); M84.48XA Pathological fracture, other site, initial encounter for fracture

== ENCOUNTER → 2019-11-10 | Outpatient (RCR) | payer BC, OTHER ==
--- NOTE | 2019-11-15 09:54 | RADONC ---
Ms. Harris was taken to the CT scan for CT simulation of her spinal and rib smith. CT was accomplished without difficulty or discomfort. Radiation treatment planning is underway and radiation treatments will begin subsequently. An immobilization device was created without difficulty or discomfort. It will be used throughout the course of treatment. I was physically present throughout the course of CT simulation. We will be treating the rib as well as the thoracic, lumbosacral spine region. [facility]ITAL[facility]
== END ==
LOC: M ONCR 10-27 14:07
PROVIDERS: ATTEND General Practice
DX: C79.51 Secondary malignant neoplasm of bone (principal)

== ENCOUNTER 2019-11-16 14:11 | Outpatient (RCR) | payer BC, OTHER ==
[~2019-11-16 14:11] MED LIST changes: -IBRA100C PO; -MORP15TA2 PO; -ONDA8TAB10 PO
[2019-12-09] MEDS ORDERED: IBRA125C PO (13:41)
== END 2019-12-11 ==
LOC: M ONCR 14:11
PROVIDERS: ATTEND General Practice
DX: C79.51 Secondary malignant neoplasm of bone (principal)

== ENCOUNTER → 2019-11-29 | Outpatient (CLI) | payer BC ==
--- NOTE | 2019-12-03 15:03 | DEXA ---
AP SPINE L1 - L4 0.890 -2.5 -1.5 LT FEMUR TOTAL 0.902 -0.8 -0.1 LT NECK 0.858 -1.3 -0.2 RT FEMUR TOTAL 0.887 -1.0 -0.2 RT NECK 0.846 -1.7 -0.3 TOTAL BODY TOTAL OTHER COMMENTS: There is low bone density of the spine and hips. The increased density of the spine does represent a significant change. The decreased density of the left hip does represent a significant change. The increased density of the right hip does not represent a significant change. The density of the spine is decreased 5.5% since the initial exam on 04/12/2015. The increased 6.8% since the most recent exam on 12/23/2017. The density of the left hip has increased 0.1% since the initial exam on 04/12/2015. The density of the left hip has decreased 3.7% since the most recent exam on 12/23/2017. The density of the right hip has decreased 4.3% since the initial exam on 04/12/2015. The density of the right hip has increased 1.7% since the most recent exam on 12/23/2017. FOLLOW-UP: Recommendation for the next bone density exam: []. MTDD
== END ==
LOC: M WHC 10:53
PROVIDERS: ATTEND Internal Medicine Hematology
DX: M85.88 Other specified disorders of bone density and structure, other site (principal); M85.851 Other specified disorders of bone density and structure, right thigh; M85.852 Other specified disorders of bone density and structure, left thigh

== ENCOUNTER → 2020-01-11 | Outpatient (POV) | payer BC, OTHER ==
[~2020-01-11] MED LIST changes: +IBRA100C PO; +MORP15TA2 PO; +ONDA8TAB10 PO; +OXYC1TAB23 PO
--- NOTE | 2020-01-13 12:18 | IRCOV ---
[facility] IR Consult Office Visit IR Consult Office Visit DATE: Jan 11, 2020 Patient agreed to this telephone consultation. I spent 30 minutes reviewing patient's records, imaging and talking to the patient. REASON FOR CONSULTATION/CHIEF COMPLAINT: Metastatic breast cancer. Back pain. L5 pathologic fracture. Pain refractory to radiation therapy. HISTORY OF PRESENT ILLNESS: 59-year-old female with metastatic stage III right sided breast cancer diagnosed in 2014. Patient developed pain in September 2019 in the lower back at which time a CT scan revealed lytic lesions in the thoracic an d lumbar spine. Patient complains of lower back pain which is constant throughout the day and interferes with all her activities of daily living. She has pain getting in and out of bed and mobilizing. She received palliative radiation therapy to her back without relief. She denies numbness or tingling or weakness in the legs. She denies bowel or bladder incontinence. She denies fev ers or chills. No prior kyphoplasty. She denies bleeding disorders. ALLERGIES: Please see below. HOME MEDICATIONS: Please see below. PAST MEDICAL HISTORY: Fibromyalgia Depression COPD Diabetes Hypertension Breast cancer PAST SURGICAL HISTORY: Right-sided mastectomy Hysterectomy Knee arthroscopy FAMILY HISTORY: Noncontributory. SOCIAL HISTORY: Smokes half a pack a day for last 40 years. Denies alcohol or drugs. REVIEW OF SYSTEMS: Otherwise negative. PHYSICAL EXAMINATION: No video on patient side. LABORATORY DATA: 01/10/2020 hemoglobin 12.7 hematocrit 39.2 WBC 4.6 platelets 306 sodium 140 potassium 3.1 BUN 13 creatinine 0.92 GFR greater than 60 12/23/2019 INR 0.98 Imaging: I reviewed the CT L-spine without contrast performed in September 2019 and compared it to the CT abdomen with contrast performed December 2017. There is a lytic lesion within L5 extending from the L5 vertebral body into the right pedicle with associated pathologic fracture of L5. There is no bony retropulsion. Old T12 compression fracture present in 2018. I reviewed the PET/CT performed in October 2019. This L5 lesion demonstrated avid FDG uptake on PET. ASSESSMENT/PLAN: 59-year-old female with persistent back pain associated with metastatic L5 fracture, refractory to radiation therapy. Patient is in significant pain and would like to undergo kyphoplasty for pain relief. We discussed the risks and benefits of the procedure and patient would like to proceed. We'll schedule the patient for this procedure. Thank you for this referral. Cc Dr. Darryl Cc Dr. Rivera Allergies Coded Allergies: aspirin (Verified Adverse Reaction, Intermediate, nausea, 06/03/18) metformin (Verified Adverse Reaction, Intermediate, GI distress, 06/03/18) Home Medications Scheduled Insulin Glargine,Hum.rec.anlog (Toujeo Solostar), 36 MG SQ QAM, (Reported) Insulin Glargine,Hum.rec.anlog (Toujeo Solostar), 30 UNIT SC QHS, (Reported) Methylphenidate HCl (Concerta), 54 MG PO DAILY, (Reported) Omeprazole (Omeprazole), 40 MG PO BID, (Reported) Ondansetron HCl (Ondansetron HCl), 4 MG PO BID, (Reported) Palbociclib (Ibrance), 1 CAP PO DAILY Pregabalin (Lyrica), 2 CAP PO QAM, (Reported) Ropinirole HCl (Ropinirole HCl), 1 MG PO TID, (Reported) Scheduled PRN Alprazolam (Alprazolam), 1 TAB PO QIDP PRN for ANXIETY/AGITATION, (Reported) Bupropion HCl (Bupropion HCl), 100 MG PO DAILYPRN PRN for ANXIETY, (Reported) Levalbuterol Hydrochloride (Xopenex Hfa), 2 PUFF INH Q4HP PRN for WHEEZING, (Reported) Ondansetron HCl (Ondansetron HCl), 8 MG PO Q6H PRN for NAUSEA OR VOMITING, (Reported) Oxycodone HCl/Acetaminophen (Oxycodone-Acetaminophen 5-325), 1 TAB PO TIDP PRN for pain Tiotropium Craig (Spiriva), 18 MCG INH DAILYPRN PRN for WHEEZING, (Reported) Discontinued Medications Morphine Sulfate (Morphine Sulfate), 15 MG PO Q4H PRN for BACK PAIN Discontinued Reason: Pt states not taking Prochlorperazine Maleate (Prochlorperazine Maleate), 10 MG PO Q8H Discontinued Reason: Pt states not taking VALENTIN FLOWERS MD Jan 13, 2020 12:18
== END ==
LOC: M TMIRPOV 10:48
PROVIDERS: ATTEND Radiology Diagnostic Radiology
DX: C50.911 Malignant neoplasm of unspecified site of right female breast (principal); M79.7 Fibromyalgia; F32.9 Major depressive disorder, single episode, unspecified; J44.9 Chronic obstructive pulmonary disease, unspecified; E11.9 Type 2 diabetes mellitus without complications; I10 Essential (primary) hypertension; Z79.4 Long term (current) use of insulin; Z79.899 Other long term (current) drug therapy; Z88.6 Allergy status to analgesic agent; Z88.8 Allergy status to other drugs, medicaments and biological substances; Z87.891 Personal history of nicotine dependence; Z90.710 Acquired absence of both cervix and uterus

== ENCOUNTER → 2020-02-15 | Outpatient (POV) | payer BC, OTHER ==
--- NOTE | 2020-02-21 12:50 | IRPN ---
[facility] IR Progress Note IR Progress Note DATE: Feb 15, 2020 Patient agreed to this telephone follow-up. I spent 5 minutes talking to the patient. FOLLOW-UP: Status post L5 kyphoplasty for pathologic fracture. Unfortunately, patient didn't get much pain relief after the kyphoplasty. Patient still feels pain especially when getting up or sitting down. However, the site has healed up, no complaints of redness or soreness at the access site. No new neuropathy or weakness in the legs. No fevers or chills. ON EXAMINATION: No video on patient side. IMPRESSION: Patient healed post kyphoplasty without any new issues. Unfortunately, the kyphoplasty didn't help with pain. We discussed heat and massage pads/belts for pain relief. Patient is taking oral pain medication. Thank you for this referral Cc Dr. Andrews Allergies Coded Allergies: aspirin (Verified Adverse Reaction, Intermediate, nausea, 06/03/18) metformin (Verified Adverse Reaction, Intermediate, GI distress, 06/03/18) VALNETIN FLOWERS MD Feb 21, 2020 12:50
== END ==
LOC: M TMIRPOV 15:15
PROVIDERS: ATTEND Radiology Diagnostic Radiology
DX: Z48.89 Encounter for other specified surgical aftercare (principal)

== ENCOUNTER → 2020-08-11 | Outpatient (CLI) | payer BC, OTHER ==
[~2020-08-11] MED LIST changes: +OMEP40CA4 PO; -OMEP40CA97 PO
--- NOTE | 2020-08-11 15:02 | RADONC ---
Radiation Oncology Hx/FUP Radiation Oncology Hx/FUP Date of Service: Aug 11, 2020 Pt Identifier Irina Harris is a 59 year old female seen for a followup visit today at the department of radiation oncology for a history of metastatic breast cancer to bone. She received 30 Gy in 10 fractions to the L-S spine completed 11/16/19 followed by L5 kyphoplasty 01/24/20. She has experienced recent progression in the skeleton on ibrance/exemestane and has been switched to fulvestrant and everolimus by Dr. Grayson @ [facility]. She is seen for consideration of additional palliative RT. Diagnosis/Treatment History Oncologic History She was diagnosed with stage III right breast cancer in 2014. She underwent right mastectomy and SLNB in May 2014 revealing [id number] ER/AR+ HER2- Grade 2. She received adjuvant AC+T chemo followed by PMRT to 50.4 Gy in 28 fractions plus a 9 Gy in 5 fractions scar boost completed on 12/16/14. She then started Arimidex in February 2015. She was LIBAN through the first part of 2019. In September 2019 she developed low back pain which prompted her to present to the ED at [facility]. CT there demonstrated concerning lesions in the T and L spine. She had a PET-CT on 10/19/19 which revealed numerous hypermetabolic foci in the axial skeleton such as left anterior 1st rib, left posterior 9th rib, right lateral 8th rib, T11-12 and L3-S1 and the BL pelvic bones, with the most extensive lesion at L5. There are no convincing visceral foci of disease. She underwent L5 biopsy on 10/20/19 with pathology showing breast cancer, ER+ AR/HER2- . She received 30 Gy in 10 fractions to T11-L5 from 11/03/19-11/16/19. She was started on exemestane/ibrance and xgeva. She had a L5 kyphoplasty on 01/24/20. She was noted to have extensive disease on PET-CT from 02/22/20. She had an updated PET-CT on 06/26/20 which revealed progression in the bones and a mixed overall response. She was started on everolimus/faslodex. Recent data: 06/26/20 PET-CT diffuse skeletal metastases 06/13/20 MRI brain no intracranial metastases. Numerous small skull mets 06/13/20 MRI C spine C5-6 vertebral body lesions with mild retropulsion Interval History Here with her supportive . Reports main sites of pain are in the low back as before, right shoulder, neck and hips BL. She takes oxycodone which helps. She has recently started new nausea medications. She follows with palliative care @ [facility]. She has some right arm weakness, ROM induces pain which radiated up into the neck. Her appetite is poor and weight is down. No fevers or night sweats. Current Therapy Faslodex/everolimus Stage Breast cancer stage IV ER+ AR/HER2- Social History: Current smoker 1/2 ppd for 40 years No alcohol use Allergies / Meds Allergies: Coded Allergies: aspirin (Verified Adverse Reaction, Intermediate, nausea, 06/03/18) metformin (Verified Adverse Reaction, Intermediate, GI distress, 06/03/18) Home Meds Active Scripts Palbociclib (Ibrance) 125 Mg Capsule, 1 CAP PO DAILY for breast cancer for 21 Days, #21 CAP 6 Refills Prov:ANIYAH GUTIERRES MD 01/26/20 Oxycodone HCl/Acetaminophen (Oxycodone-Acetaminophen 5-325) 1 Each Tablet, 1 TAB PO TIDP PRN for pain MDD 3 Tablet(s) for 30 Days, #90 TAB Prov:ANIYAH GUTIERRES MD 01/10/20 Reported Medications Ondansetron HCl (Ondansetron HCl) 8 Mg Tablet, 8 MG PO Q6H PRN for NAUSEA OR VOMITING, #30 TAB 3 Refills 12/23/19 Alprazolam (Alprazolam) 0.5 Mg Tablet, 1 TAB PO QIDP PRN for ANXIETY/AGITATION 10/22/19 Pregabalin (Lyrica) 150 Mg Capsule, 2 CAP PO QAM MDD 2 Capsule(s) for 30 Days, #60 CAP 2 tabs in am, 1 in afternoon and 2 tabs at bedtime 10/20/19 Insulin Glargine,Hum.rec.anlog (Toujeo Solostar) 300 Unit/1 Ml Insuln.pen, 30 UNIT SC QHS 10/20/19 Ondansetron HCl (Ondansetron HCl) 4 Mg Tablet, 4 MG PO BID for NAUSEA, #30 10/06/19 Insulin Glargine,Hum.rec.anlog (Toujeo Solostar) 300 Unit/1 Ml Insuln.pen, 36 MG SQ QAM 06/03/18 Tiotropium [place] (Spiriva) 18 Mcg Cap, 18 MCG INH DAILYPRN PRN for WHEEZING for 30 Days, CAP 01/06/18 Bupropion HCl (Bupropion HCl) 50 Mg Halftab, 100 MG PO DAILYPRN PRN for ANXIETY, TAB 03/06/17 Levalbuterol Hydrochloride (Xopenex Hfa) 45 Mcg/Act Aer, 2 PUFF INH Q4HP PRN for WHEEZING, INHALER 03/06/17 Omeprazole (Omeprazole) 40 Mg Cap, 40 MG PO BID, CAP 03/06/17 Methylphenidate HCl (Concerta) 54 Mg Tab, 54 MG PO DAILY 03/06/17 Ropinirole HCl (Ropinirole HCl) 1 Mg Tab, 1 MG PO TID, TAB 03/06/17 Review of Systems Review of Systems Constitutional: Reports: Fatigue; Denies: Chills, Fever, Normal appetite Eyes: Denies: Pain HEENT: Reports: Head Aches Skin: Denies: Rash Pulmonary: Denies: Dyspnea, Cough Cardiovascular: Denies: Chest Pain Gastrointestinal: Reports: Nausea, Vomiting; Denies: Abdominal Pain, Diarrhea Musculoskeletal: Reports: Neck pain, Arm pain, Back pain, Leg pain Neurological: Denies: Weakness, Numbness Psych: Reports: Mood Normal Physical Examination Vital Signs Wt 197 T 98 P 76 RR 20 BP 146/91 O2 93% Pain 7 Fatigue 2 General Exam: Positive: Alert, Cooperative, No Acute Distress Eye Exam: Positive: PERRLA, EOMI Neck Exam: Positive: Supple Chest Exam: Positive: Clear to auscultation Heart Exam: Positive: Rate Normal Abdomen Exam: Positive: Soft Extremity Exam: Negative: Edema Skin Exam: Positive: Nl turgor and temperature Neuro Exam: Positive: Normal Gait, Normal Speech, Cranial Nerves 3-12 NL Psych Exam: Positive: Mental status NL Other Physical Findings Tender at hips BL, nunez-spinal tenderness. UE strength 5/5 BL. LE strength 5/5 BL. Diagnostic and Laboratory Diagnostic Review Radiologic images, relevant labs and pathology reports were personally reviewed and discussed with Ms. Harris. Assessment and Plan Impression Assessment Ms. Harris is a 59 year old female with a history of metastatic breast cancer to bone. She received 30 Gy in 10 fractions to the L-S spine completed 11/16/19 followed by L5 kyphoplasty 01/24/20. She has experienced recent progression in the skeleton on ibrance/exemestane and has been switched to fulvestrant and everolimus by Dr. Grayson @ [facility]. She is seen for consideration of additional palliative RT. She is struggling with multifocal pain. I reviewed her PET-CT and recent MRI C spine and brain. She has disease in C5-6 vertebral bodies, which have some minor retropulsion into the spinal canal. She has BL lesions in the proximal humeri, as well as the BL proximal femurs and acetabuli. I think she would benefit most immediately from palliative RT to C5-6 to protect her spine and motor function as well as the BL hips. For the shoulder lesions, she is scheduled to see orthopedics. I will defer RT here until they weigh in. In the absence of a surgical procedure, I think she would benefit from the shoulders receiving RT as well. Will give 20 Gy in 5 fractions with 2D planning to the C spine and BL hips. The hip treatment will have minimal overlap with the prior T-L spine smith. I explained that I would be reticent to repeat RT to the T-L spine at this time, this would require more sophisticated planning (eg VMAT), be laden with increased side effect risk, and be less likely to improve her pain the second time around. I would reserve repeat RT here as a last resort if her pain at this site decompensates further. We reviewed the side effects of treatment to the C spine, esophagitis mild, to the hips, skin reaction mild, as well as fatigue. Simulation will proceed early next week with treatment commencing shortly thereafter. Performance Status ECOG 2 Plan Palliative RT to the C spine and BL hips 20 Gy in 5 fractions Simulation early next week Will follow closely upon completion for additional sites warranting palliative RT May ultimately benefit from [id number] if continued skeletal progression and exhaustion of viable systemic therapy options Ms. Harris was encouraged to call with questions or concerns in the interim period. Billing Statement Total time of [29] minutes was spent preparing for the visit [1], obtaining HPI [5], examining the patient [2], reviewing diagnostic tests [5], discussing management options [7], coordinating care [1], and writing this note [8]. SHAHIDA FULLER MD Aug 11, 2020 15:02
== END ==
LOC: M ONCR 13:15
PROVIDERS: ATTEND General Practice
DX: C50.211 Malignant neoplasm of upper-inner quadrant of right female breast (principal); C79.51 Secondary malignant neoplasm of bone; F17.210 Nicotine dependence, cigarettes, uncomplicated; Z79.4 Long term (current) use of insulin; Z79.899 Other long term (current) drug therapy; Z88.6 Allergy status to analgesic agent; Z88.8 Allergy status to other drugs, medicaments and biological substances; Z90.11 Acquired absence of right breast and nipple; Z92.21 Personal history of antineoplastic chemotherapy

== ENCOUNTER 2020-08-28 13:15 | Outpatient (RCR) | payer BC, OTHER | END 2020-09-09 | LOC: M ONCR 13:15 | PROVIDERS: ATTEND General Practice | DX: C79.51 Secondary malignant neoplasm of bone (principal) ==

== ENCOUNTER → 2020-12-18 | Outpatient (REF) | payer OTHER ==
[2020-12-18 11:57] LABS: BASO # 0.1 10^3/uL (0.0-0.2); BASO % 1.1 % (0.0-1.0); EOS # 0.1 10^3/uL (0.0-0.5); EOS % 1.9 % (0.0-3.0); HEMATOCRIT 31.9 % (36.0-47.0); HEMOGLOBIN 10.3 g/dl (12.0-15.5); LYMPH # 0.7 10^3/uL (1.5-5.0); LYMPH % 10.8 % (24.0-44.0); MEAN CORPUSCULAR HEMOGLOBIN 27.8 pg (27.0-33.0); MEAN CORPUSCULAR HGB CONC 32.3 g/dl (32.0-36.5); MEAN CORPUSCULAR VOLUME 86.2 fl (80.0-96.0); MONO # 0.5 10^3/uL (0.0-0.8); MONO % 8.3 % (2.0-8.0); NEUTROPHILS # 4.8 10^3/uL (1.5-8.5); NEUTROPHILS % 76.6 % (36.0-66.0); PLATELET COUNT, AUTOMATED 155 10^3/uL (150-450); WHITE BLOOD COUNT 6.3 10^3/uL (4.0-10.0)
[2020-12-18 12:25] LABS: HEMOGLOBIN A1c 10.4 %
[2020-12-18 12:58] LABS: ALT/SGPT 34 U/L (12-78); BILIRUBIN,TOTAL 0.6 MG/DL (0.2-1.0); BLOOD UREA NITROGEN 10 MG/DL (7-18); CALCIUM LEVEL 9.1 MG/DL (8.5-10.1); CARBON DIOXIDE LEVEL 24 MEQ/L (21-32); CHLORIDE LEVEL 111 MEQ/L (98-107); CHOLESTEROL LEVEL 134 MG/DL (<200); CHOLESTEROL RISK RATIO 2.977 (<5); CREATININE FOR GFR 0.92 MG/DL (0.55-1.30); GLOMERULAR FILTRATION RATE > 60.0 (>51); GLUCOSE, FASTING 99 MG/DL (70-100); HDL CHOLESTEROL 45 MG/DL (>40); LDL CHOLESTEROL 42 MG/DL (<100); NON-HDL-C 89 MG/DL; POTASSIUM SERUM 3.7 MEQ/L (3.5-5.1); SODIUM LEVEL 144 MEQ/L (136-145); TOTAL PROTEIN 6.6 GM/DL (6.4-8.2); TRIGLYCERIDES LEVEL 234 MG/DL (<150)
== END ==
LOC: M SFHCCLAY 08:37
PROVIDERS: ATTEND Family Medicine
DX: E11.65 Type 2 diabetes mellitus with hyperglycemia (principal); Z95.5 Presence of coronary angioplasty implant and graft; Z85.3 Personal history of malignant neoplasm of breast

== ENCOUNTER → 2021-03-20 | Outpatient (REF) | payer OTHER ==
[~2021-03-20] MED LIST changes: +CAPE1TAB; +CAPE1TAB2; +ONDA-84 PO; -ONDA8TAB10 PO; -PROC10TA4 PO; +PROC10TA5 PO
[2021-03-20 16:10] LABS: APPEARANCE, URINE HAZY (CLEAR); BACTERIA, URINE AUTO NEGATIVE (NEGATIVE); BILIRUBIN, URINE AUTO 1+ (NEGATIVE); BLOOD, URINE BLOOD NEGATIVE (NEGATIVE); COLOR, URINE AMBER (YELLOW); GLUCOSE, URINE (UA) AUTO NEGATIVE (NEGATIVE); KETONE, URINE AUTO NEGATIVE (NEGATIVE); LEUKOCYTE ESTERASE, URINE AUTO TRACE (NEGATIVE); MUCUS, URINE SMALL (NEGATIVE); NITRITE, URINE AUTO NEGATIVE (NEGATIVE); PROTEIN, URINE AUTO 1+ mg/dL (NEGATIVE); RBC, URINE AUTO 0 /HPF (0-3); SPECIFIC GRAVITY URINE AUTO 1.014 (1.002-1.035); SQUAMOUS EPITHELIAL CELL UR AU 1 /HPF (0-6); TRANSITIONAL EPITHELIAL AUTO <1 /HPF; WBC, URINE AUTO 12 /HPF (0-3)
== END ==
LOC: M LAB REF 15:30
DX: N30.00 Acute cystitis without hematuria (principal)

== ENCOUNTER → 2021-03-21 | Outpatient (REF) | payer OTHER ==
[2021-03-21 16:31] LABS: HEMOGLOBIN 7.7 g/dl (12.0-15.5); MEAN CORPUSCULAR HEMOGLOBIN 29.2 pg (27.0-33.0); MEAN CORPUSCULAR HGB CONC 29.6 g/dl (32.0-36.5); MEAN CORPUSCULAR VOLUME 98.5 fl (80.0-96.0); PLATELET COUNT, AUTOMATED 135 10^3/uL (150-450); RED BLOOD COUNT 2.64 10^6/uL (4.00-5.40); WHITE BLOOD COUNT 6.1 10^3/uL (4.0-10.0)
[2021-03-21 16:53] LABS: BILIRUBIN,TOTAL 3.6 MG/DL (0.2-1.0); CALCIUM LEVEL 7.9 MG/DL (8.5-10.1); CREATININE FOR GFR 1.49 MG/DL (0.55-1.30); GLOMERULAR FILTRATION RATE 38.3 (>51); POTASSIUM SERUM 4.8 MEQ/L (3.5-5.1); TOTAL PROTEIN 6.2 GM/DL (6.4-8.2)
== END ==
LOC: M SFHCCLAY 11:54
PROVIDERS: ATTEND Family Medicine
DX: E11.65 Type 2 diabetes mellitus with hyperglycemia (principal); C79.51 Secondary malignant neoplasm of bone